=== PATIENT | male | born 1930 | race Caucasian/White ===

== ENCOUNTER 2017-08-11 17:24 | Inpatient (IN) | payer MEDICARE, BC ==
--- NOTE | 2017-08-11 18:17 | EDM.PDOC ---
ED HPI GENERAL MEDICAL PROBLEM - General Chief Complaint: General Stated Complaint: COUGH/WEAKNESS Time Seen by Provider: 08/11/17 17:58 Source of Information: Reports: Patient History Limitations: Reports: No Limitations - History of Present Illness INITIAL COMMENTS - FREE TEXT/NARRATIVE: Patient presents to ER complaining of not feeling well. Admits to cough and weakness. Cough has been nonproductive. Did not get out of bed today nor did he take any of his meds. Was seen in clinic by myself on Wednesday with complaints of upper respiratory symptoms, was started on Ceftin. Did not take any of those today. Unsure if has had fever. Not eating well. Has lost over 100# over the last few years due to swallowing difficulties, had a dilation and botox injections a few weeks ago. States is able to eat better now. Brother relates he has not been himself over the last week or so. Patient denies any burning with urination, states only goes a small amount at a time. Does not recall the last time he had a BM, no diarrhea as of late. Has had chills, possibly a fever at home. Onset: Gradual Duration: Day(s): Location: Reports: Generalized Severity: Moderate Worsens with: Reports: Movement Associated Symptoms: Reports: Cough, Fever/Chills, Loss of Appetite, Weakness. Denies: Nausea/Vomiting, Shortness of Breath Treatments [employer]: Reports: Other Medication(s) (Ceftin) - Related Data Allergies Allergy/AdvReac Type Severity Reaction Status Date / Time No Known Allergies Allergy Verified 08/11/17 17:35 Home Meds: Home Meds Cefuroxime Axetil [Cefuroxime] 250 mg PO Q12H 08/11/17 [History] Chlorthalidone 25 mg PO DAILY 08/11/17 [History] Doxazosin Mesylate [Cardura] 4 mg PO DAILY 08/11/17 [History] Levothyroxine Sodium [Synthroid] 100 mcg PO DAILY 08/11/17 [History] Omeprazole 20 mg PO DAILY 08/11/17 [History] Oxybutynin Chloride [Oxybutynin Chloride ER] 15 mg PO DAILY 08/11/17 [History] Potassium Chloride [Klor-Con 10] 10 mg PO DAILY 08/11/17 [History] amLODIPine Besylate [Amlodipine Besylate] 5 mg PO DAILY 08/11/17 [History] azaTHIOprine [Imuran] 50 mg PO DAILY 08/11/17 [History] Past Medical History HEENT History: Reports: Other (See Below) (dysphagia) Cardiovascular History: Reports: Hypertension Genitourinary History: Reports: Other (See Below) (prostate cancer) Oncologic (Cancer) History: Reports: Prostate - Past Surgical History HEENT Surgical History: Reports: Cataract Surgery Social & Family History - Tobacco Use Smoking Status *Q: Never Smoker - Caffeine Use Caffeine Use: Reports: Coffee - Recreational Drug Use Recreational Drug Use: No ED ROS GENERAL - Review of Systems Review Of Systems: See Below Constitutional: Reports: Fever, Chills, Malaise, Weakness, Fatigue, Decreased Appetite HEENT: Reports: Rhinitis. Denies: Ear Pain, Throat Swelling Respiratory: Reports: Cough, Sputum. Denies: Shortness of Breath Cardiovascular: Denies: Chest Pain, Edema, Lightheadedness Endocrine: Reports: Fatigue GI/Abdominal: Reports: Constipation. Denies: Abdominal Pain, Nausea, Vomiting : Reports: Incontinence Skin: Reports: No Symptoms Neurological: Reports: Weakness ED EXAM, GENERAL - Physical Exam Exam: See Below Exam Limited By: No Limitations General Appearance: Alert, WD/WN, No Apparent Distress Ears: Normal External Exam, Normal TMs Nose: Normal Inspection, Normal Mucosa, No Blood Throat/Mouth: Other (mucous membranes dry) Head: Normocephalic Neck: Normal Inspection, Supple, Non-Tender Respiratory/Chest: Decreased Breath Sounds Cardiovascular: Normal Peripheral Pulses, Regular Rate, Rhythm, No Edema GI/Abdominal: Normal Bowel Sounds, No Distention Extremities: Normal Inspection, No Pedal Edema Neurological: Alert, Oriented Psychiatric: Flat Affect Skin Exam: Warm, Dry Course - Vital Signs Last Recorded V/S: Last Vital Signs Temp 99.8 F 08/11/17 17:25 Pulse 70 08/11/17 17:25 Resp 18 08/11/17 17:25 BP 138/50 L 08/11/17 17:25 Pulse Ox 94 L 08/11/17 17:25 - Orders/Labs/Meds Orders: Active Orders 24 hr Category Date Time Status Patient Status [ADT] Routine ADT 08/11/17 18:58 Active Cardiac Monitoring [RC] CONTINUOUS Care 08/11/17 18:58 Active Oxygen Therapy [RC] PRN Care 08/11/17 18:58 Active Peripheral IV Care [RC] . DIRECTED Care 08/11/17 18:58 Active Up With Assistance [RC] ASDIRECTED Care 08/11/17 18:58 Active VTE/DVT Education [RC] PER UNIT ROUTINE Care 08/11/17 18:58 Active Vital Signs [RC] Q4H Care 08/11/17 18:58 Active Regular Diet [DIET] Diet 08/11/17 Breakfast Active Chest 2V [CR] Stat Exams 08/11/17 17:40 Taken BASIC METABOLIC PANEL,BMP [CHEM] AM Lab 08/12/17 05:11 Ordered C-REACTIVE PROTEIN [CHEM] AM Lab 08/12/17 05:11 Ordered CBC WITH AUTO DIFF [HEME] AM Lab 08/12/17 05:11 Ordered CULTURE SPUTUM + SMEAR [RM] Stat Lab 08/11/17 18:58 Ordered MAGNESIUM [CHEM] Stat Lab 08/12/17 05:11 Ordered Acetaminophen [Tylenol] Med 08/11/17 18:58 Ordered 650 mg PO Q4H PRN Azithromycin [Zithromax] 500 mg Med 08/11/17 18:58 Ordered Sodium Chloride 0.9% [Normal Saline] 250 ml IV Q24H Enoxaparin [Lovenox] Med 08/11/17 18:58 Ordered 30 mg SUBCUT Q24H Lactated Ringers [Ringers, Lactated] 1,000 ml Med 08/11/17 18:58 Ordered IV ASDIRECTED Ondansetron [Zofran ODT] Med 08/11/17 18:58 Ordered 4 mg PO Q4H PRN Sodium Chloride 0.9% [Saline Flush] Med 08/11/17 18:58 Ordered 10 ml FLUSH ASDIRECTED PRN cefTRIAXone [Rocephin] Med 08/11/17 18:58 Ordered 1 gm IVPUSH Q24H Peripheral IV Insertion Adult [OM.PC] Routine Oth 08/11/17 18:58 Ordered Resuscitation Status Routine Resus Stat 08/11/17 18:22 Ordered Medication Orders Acetaminophen (Tylenol) 650 mg PO Q4H PRN PRN Reason: Pain (Mild 1-3)/fever Ceftriaxone Sodium (Rocephin) 1 gm IVPUSH Q24H [facility] Enoxaparin Sodium (Lovenox) 30 mg SUBCUT Q24H [facility] Azithromycin 500 mg/ Sodium (Chloride) 250 mls @ 250 mls/hr IV Q24H [facility] Lactated Ringer's (Ringers, Lactated) 1,000 mls @ 125 mls/hr IV ASDIRECTED [facility] Ondansetron HCl (Zofran Odt) 4 mg PO Q4H PRN PRN Reason: nausea, able to take PO Sodium Chloride (Saline Flush) 10 ml FLUSH ASDIRECTED PRN PRN Reason: Keep Vein Open Labs: Laboratory Tests 08/11/17 08/11/17 08/11/17 Range/Units 17:40 17:45 17:45 WBC 10.0 (5.0-10.0) 10^3/uL RBC 3.92 L (4.50-6.00) 10^6/uL Hgb 12.2 L (14.0-18.0) g/dL Hct 36.7 L (40.0-54.0) % MCV 93.6 (82.0-94.0) fL MCH 31.1 (27.0-32.0) pg MCHC 33.2 (33.0-38.0) g/dL RDW Coeff of Lara 13.1 (11.0-15.0) % Plt Count 167 (150-400) 10^3/uL Add Manual Diff Yes Neutrophils % (Manual) 76 (35-85) % Band Neutrophils % 15 H (0-5) % Lymphocytes % (Manual) 4 L (21-55) % Monocytes % (Manual) 5 (2-12) % Absolute Neutrophils 9.10 H (1.80-7.00) 10^3/uL Lymphocytes # (Manual) 0.40 L (1.00-4.80) 10^3/uL Monocytes # (Manual) 0.50 (0.00-0.80) 10^3/uL Sodium 138 (136-145) mEq/L Potassium 3.7 (3.5-5.0) mEq/L Chloride 100 (98-106) mEq/L Carbon Dioxide 26 (21-32) mmol/L BUN 32 H (7-18) mg/dL Creatinine 1.4 H (0.7-1.3) mg/dL Est Cr Clr Drug Dosing 38.16 mL/min Estimated GFR (MDRD) 48 L (>=60) mL/min Glucose 144 H (75-99) mg/dL Calcium 8.9 (8.4-10.1) mg/dL Total Bilirubin 0.5 (0.0-1.0) mg/dL AST 22 (15-37) U/L ALT 16 (12-78) U/L Alkaline Phosphatase 48 (46-116) U/L C-Reactive Protein 3.1 H (0.2-0.8) mg/dL Total Protein 7.1 (6.4-8.2) g/dL Albumin 3.3 L (3.4-5.0) g/dL Urine Color Yellow (YELLOW) Urine Appearance Slightly cloudy (CLEAR) Urine pH 6.0 (4.5-8.0) Ur Specific [place] 1.020 (1.003-1.020) Urine Protein 30 H (NEGATIVE) mg/dL Urine Glucose (UA) Negative (NEGATIVE) mg/dL Urine Ketones 15 H (NEGATIVE) mg/dL Urine Occult Blood Small H (NEGATIVE) Urine Nitrite Negative (NEGATIVE) Urine Bilirubin Negative (NEGATIVE) Urine Urobilinogen 0.2 (0.2-1.0) EU/dL Ur Leukocyte Esterase Negative (NEGATIVE) Meds: Medications Generic Name Dose Route Start Last Admin Trade Name Freq PRN Reason Stop Dose Admin Acetaminophen 650 mg 08/11/17 18:58 Tylenol PO Q4H PRN Pain (Mild 1-3)/fever Ceftriaxone Sodium 1 gm 08/11/17 18:58 Rocephin IVPUSH Q24H [facility] Enoxaparin Sodium 30 mg 08/11/17 18:58 Lovenox SUBCUT Q24H [facility] Azithromycin 500 mg/ Sodium 250 mls @ 250 mls/hr 08/11/17 18:58 Chloride IV Q24H [facility] Lactated Ringer's 1,000 mls @ 125 mls/hr 08/11/17 18:58 Ringers, Lactated IV ASDIRECTED [facility] Ondansetron HCl 4 mg 08/11/17 18:58 Zofran Odt PO Q4H PRN nausea, able to take PO Sodium Chloride 10 ml 08/11/17 18:58 Saline Flush FLUSH ASDIRECTED PRN Keep Vein Open - Re-Assessments/Exams Free Text/Narrative Re-Assessment/Exam: 08/11/17 Labs reviewed. Noted to have elevated neutrophil and bands. Will admit and start IV fluids, antibiotics. Departure - Departure Time of Disposition: 18:19 Disposition: Refer to Observation Condition: Fair Clinical Impression: Weakness URI (upper respiratory infection) Qualifiers: URI type: unspecified URI Qualified Code(s): J06.9 - Acute upper respiratory infection, unspecified - Discharge Information - Problem List & Annotations (1) URI (upper respiratory infection) SNOMED Code(s): 38497662 Code(s): J06.9 - ACUTE UPPER RESPIRATORY INFECTION, UNSPECIFIED Status: Acute Priority: High Current Visit: Yes Qualifiers: URI type: unspecified URI Qualified Code(s): J06.9 - Acute upper respiratory infection, unspecified (2) Weakness SNOMED Code(s): 95905264 Code(s): R53.1 - WEAKNESS Status: Acute Priority: High Current Visit: Yes (3) Dehydration SNOMED Code(s): 24269088 Code(s): E86.0 - DEHYDRATION Status: Acute Priority: High Current Visit : Yes - Problem List Review Problem List Initiated/Reviewed/Updated: Yes - My Orders Last 24 Hours: My Active Orders 08/11/17 17:40 Chest 2V [CR] Stat 08/11/17 18:22 Resuscitation Status Routine 08/11/17 18:58 Patient Status [ADT] Routine Cardiac Monitoring [RC] CONTINUOUS Oxygen Therapy [RC] PRN Peripheral IV Care [RC] . DIRECTED Up With Assistance [RC] ASDIRECTED VTE/DVT Education [RC] PER UNIT ROUTINE Vital Signs [RC] Q4H CULTURE SPUTUM + SMEAR [RM] Stat Acetaminophen [Tylenol] 650 mg PO Q4H PRN Azithromycin [Zithromax] 500 mg Sodium Chloride 0.9% [Normal Saline] 250 ml IV Q24H Enoxaparin [Lovenox] 30 mg SUBCUT Q24H Lactated Ringers [Ringers, Lactated] 1,000 ml IV ASDIRECTED Ondansetron [Zofran ODT] 4 mg PO Q4H PRN Sodium Chloride 0.9% [Saline Flush] 10 ml FLUSH ASDIRECTED PRN cefTRIAXone [Rocephin] 1 gm IVPUSH Q24H Peripheral IV Insertion Adult [OM.PC] Routine 08/11/17 Breakfast Regular Diet [DIET] 08/12/17 05:11 BASIC METABOLIC PANEL,BMP [CHEM] AM C-REACTIVE PROTEIN [CHEM] AM CBC WITH AUTO DIFF [HEME] AM MAGNESIUM [CHEM] Stat - Assessment/Plan Admission H&P: Please use this note as an admission H&P Last 24 Hours: My Active Orders 08/11/17 17:40 Chest 2V [CR] Stat 08/11/17 18:22 Resuscitation Status Routine 08/11/17 18:58 Patient Status [ADT] Routine Cardiac Monitoring [RC] CONTINUOUS Oxygen Therapy [RC] PRN Peripheral IV Care [RC] . DIRECTED Up With Assistance [RC] ASDIRECTED VTE/DVT Education [RC] PER UNIT ROUTINE Vital Signs [RC] Q4H CULTURE SPUTUM + SMEAR [RM] Stat Acetaminophen [Tylenol] 650 mg PO Q4H PRN Azithromycin [Zithromax] 500 mg Sodium Chloride 0.9% [Normal Saline] 250 ml IV Q24H Enoxaparin [Lovenox] 30 mg SUBCUT Q24H Lactated Ringers [Ringers, Lactated] 1,000 ml IV ASDIRECTED Ondansetron [Zofran ODT] 4 mg PO Q4H PRN Sodium Chloride 0.9% [Saline Flush] 10 ml FLUSH ASDIRECTED PRN cefTRIAXone [Rocephin] 1 gm IVPUSH Q24H Peripheral IV Insertion Adult [OM.PC] Routine 08/11/17 Breakfast Regular Diet [DIET] 08/12/17 05:11 BASIC METABOLIC PANEL,BMP [CHEM] AM C-REACTIVE PROTEIN [CHEM] AM CBC WITH AUTO DIFF [HEME] AM MAGNESIUM [CHEM] Stat Assessment:: Weakness Dehydration URI Plan: Admit observation to Dr. Bauman. IV fluids, IV antibiotics. Repeat labs in am.
[2017-08-11] MEDS ORDERED: Ondansetron 4 MG Tab.DIS PO PRN (18:58)
[2017-08-11] MEDS ORDERED: Acetaminophen 325 MG Tab PO PRN (18:58)
[2017-08-11] MEDS ORDERED: Sodium Chloride 0.9% 10 ML Syringe FLUSH PRN (18:58)
[2017-08-11] MEDS ORDERED: Enoxaparin 40 MG/0.4 ML Syringe SUBCUT SCH (19:00)
[2017-08-11] MEDS: Enoxaparin 40 MG/0.4 ML Syringe SUBCUT SCH (19:45)
[2017-08-11] MEDS: cefTRIAXone 1 GM Vial IVPUSH SCH (19:46)
[2017-08-11] MEDS: Lactated Ringers 1,000 ML IV SCH (19:46)
[2017-08-11] MEDS: Azithromycin 500 MG in Sodium Chloride 0.9% 250 ML IV SCH (19:47)
[2017-08-12] MEDS: Lactated Ringers 1,000 ML IV SCH (05:44)
[2017-08-12 07:35] LABS: CHLORIDE,CL 103 mEq/L (98-106); SODIUM,NA 140 mEq/L (136-145)
[2017-08-12] MEDS ORDERED: AMLODIPINE BESYLATE 5 MG PO SCH (08:00)
[2017-08-12] MEDS ORDERED: DOXAZOSIN MESYLATE 4 MG PO SCH (08:00)
[2017-08-12] MEDS ORDERED: OMEPRAZOLE 20 MG PO SCH (08:00)
[2017-08-12] MEDS: Chlorthalidone 25 MG Tab PO SCH (08:21)
[2017-08-12] MEDS: AZATHIOPRINE 50 MG PO SCH (08:21)
[2017-08-12] MEDS: Potassium Chloride 10 MEQ Tab.ER PO SCH (08:22)
[2017-08-12] MEDS: methylPREDNISolone Sodium Succinate 125 MG/2 ML SDV IVPUSH SCH (08:22)
[2017-08-12] MEDS: D5 1/2 NS w/ 20 mEq/L KCl 1,000 ML IV SCH (08:23)
[2017-08-12] MEDS: Levothyroxine 100 MCG Tab PO SCH (08:23)
[2017-08-12] MEDS: Albuterol/Ipratropium 3.0-0.5 MG/3 ML Neb Soln NEB SCH ×3 (11:45→19:59)
--- NOTE | 2017-08-12 13:40 | PN ---
DATE: 08/12/2017 S: Mahamed Howard came in short of breath, coughing. O: NECK: Supple. CHEST: Wheezing, crepitus throughout. CARDIAC: Sounds are good. EXTREMITIES: No edema. ASSESSMENT: BRONCHIOLITIS. P: Add some steroids. Continue RT treatments and IV antibiotics. LISBETH/VANDANA /[id number]
[2017-08-12] MEDS: cefTRIAXone 1 GM Vial IVPUSH SCH (19:58)
[2017-08-12] MEDS: Enoxaparin 40 MG/0.4 ML Syringe SUBCUT SCH (19:59)
[2017-08-12] MEDS: Azithromycin 500 MG in Sodium Chloride 0.9% 250 ML IV SCH (20:00)
[2017-08-13] MEDS: D5 1/2 NS w/ 20 mEq/L KCl 1,000 ML IV SCH (00:15)
[2017-08-13] MEDS: Pantoprazole 40 MG Tab.CR PO SCH (06:55)
[2017-08-13 07:31] LABS: CHLORIDE,CL 103 mEq/L (98-106); SODIUM,NA 138 mEq/L (136-145)
[2017-08-13] MEDS: methylPREDNISolone Sodium Succinate 125 MG/2 ML SDV IVPUSH SCH (07:52)
[2017-08-13] MEDS: Albuterol/Ipratropium 3.0-0.5 MG/3 ML Neb Soln NEB SCH ×4 (07:55→19:45)
[2017-08-13] MEDS: Potassium Chloride 10 MEQ Tab.ER PO SCH (07:55)
[2017-08-13] MEDS: Chlorthalidone 25 MG Tab PO SCH (07:56)
[2017-08-13] MEDS: Levothyroxine 100 MCG Tab PO SCH (07:56)
[2017-08-13] MEDS: Doxazosin 2 MG Tab PO SCH (07:56)
[2017-08-13] MEDS: AZATHIOPRINE 50 MG PO SCH (07:58)
[2017-08-13] MEDS: amLODIPine 2.5 MG Tab PO SCH (08:15)
--- NOTE | 2017-08-13 12:59 | PN ---
DATE: 08/13/2017 S: Mahamed Howard is in with bronchiolitis, COPD. PHYSICAL EXAMINATION: NECK: Supple. CHEST: Wheezing, little basilar rales, right base, but he has improved from yesterday. ASSESSMENT: CHRONIC OBSTRUCTIVE PULMONARY DISEASE. P: Continue present therapy. His potassium is corrected. LISBETH/VANDANA /[id number]
[2017-08-13] MEDS: Magnesium Hydroxide 400 MG/5 ML Susp 30 ML Cup PO PRN (17:29)
[2017-08-13] MEDS: Enoxaparin 40 MG/0.4 ML Syringe SUBCUT SCH (19:42)
[2017-08-13] MEDS: Azithromycin 500 MG in Sodium Chloride 0.9% 250 ML IV SCH (19:43)
[2017-08-13] MEDS: Docusate Sodium 100 MG Cap PO SCH (19:43)
[2017-08-13] MEDS: cefTRIAXone 1 GM Vial IVPUSH SCH (19:43)
[2017-08-14] MEDS: Pantoprazole 40 MG Tab.CR PO SCH (06:24)
[2017-08-14] MEDS: Magnesium Hydroxide 400 MG/5 ML Susp 30 ML Cup PO PRN (06:24)
[2017-08-14] MEDS: Levothyroxine 100 MCG Tab PO SCH (07:58)
[2017-08-14] MEDS: Potassium Chloride 10 MEQ Tab.ER PO SCH (07:58)
[2017-08-14] MEDS: methylPREDNISolone Sodium Succinate 125 MG/2 ML SDV IVPUSH SCH (07:58)
[2017-08-14] MEDS: Albuterol/Ipratropium 3.0-0.5 MG/3 ML Neb Soln NEB SCH ×3 (07:58→16:07)
[2017-08-14] MEDS: Chlorthalidone 25 MG Tab PO SCH (07:58)
[2017-08-14] MEDS: Docusate Sodium 100 MG Cap PO SCH (07:59)
[2017-08-14] MEDS: AZATHIOPRINE 50 MG PO SCH (07:59)
[2017-08-14] MEDS: Doxazosin 2 MG Tab PO SCH (08:09)
[2017-08-14 08:10] LABS: CHLORIDE,CL 103 mEq/L (98-106); SODIUM,NA 140 mEq/L (136-145)
[2017-08-14] MEDS: amLODIPine 2.5 MG Tab PO SCH (08:10)
[2017-08-14] MEDS ORDERED: Polyethylene Glycol 3350 Powder 17 GM Packet PO ONE (13:23)
--- NOTE | 2017-08-14 14:39 | PCM.DCSUM1 ---
Discharge Summary - Hospital Course HPI Initial Comments: This patient is an 87 year old male that was admitted with bronchitis. The patient reports today that he feels great. He reports that he would like to go home now. Patient is out and ambulating in the hallway and his oxygen saturation is 98% RA. Patient reports that he does not feel short of breath. The patient labs show improvement. His WBC yesterday was 13.4, today it is 12.9. His CRP yesterday was 6.6, today it is 4.0. THe patient lung sounds are improved. Will discharge the patient home. - Discharge Data Discharge Date: 08/14/17 Discharge Disposition: Home, Self-Care 01 Condition: Good - Patient Instructions Diet: Usual Diet as Tolerated Activity: As Tolerated Showering/Bathing: May Shower Notify Provider of: Fever, Increased Pain, Nausea and/or Vomiting - Discharge Plan Prescriptions/Med Rec: Albuterol/Ipratropium [DuoNeb 3.0-0.5 MG/3 ML] 3 ml NEB QIDRT #60 neb Cefdinir [Omnicef] 300 mg PO BID 7 Days #14 cap Home Medications: Home Meds Cefuroxime Axetil [Cefuroxime] 250 mg PO Q12H 08/11/17 [History] Chlorthalidone 25 mg PO DAILY 08/11/17 [History] Doxazosin Mesylate [Cardura] 4 mg PO DAILY 08/11/17 [History] Levothyroxine Sodium [Synthroid] 100 mcg PO DAILY 08/11/17 [History] Omeprazole 20 mg PO DAILY 08/11/17 [History] Oxybutynin Chloride [Oxybutynin Chloride ER] 15 mg PO DAILY 08/11/17 [History] Potassium Chloride [Klor-Con 10] 10 mg PO DAILY 08/11/17 [History] amLODIPine Besylate [Amlodipine Besylate] 5 mg PO DAILY 08/11/17 [History] azaTHIOprine [Imuran] 50 mg PO DAILY 08/11/17 [History] Albuterol/Ipratropium [DuoNeb 3.0-0.5 MG/3 ML] 3 ml NEB QIDRT #60 neb 08/14/17 [ Rx] Cefdinir [Omnicef] 300 mg PO BID 7 Days #14 cap 08/14/17 [Rx] Patient Handouts: Upper Respiratory Infection, Adult, Dehydration, Adult Forms: ED Department Discharge Referrals: Henrry Velázquez MD [Primary Care Provider] - - Discharge Summary/Plan Comment DC Time >30 min.: No Discharge Summary/Plan Comment: Followup with your primary care provider within 3 days Return to the ER for worsening of condition or any emergent concerns such as shortness of breath, chest pain. Neb Machine #1 no refill Duoneb 1 neb every 6 hours as needed for shortness of breath #60 no refill Cefdinir 300mg 1 pill twice a day for 7 days #14 no refill - General Info Functional Status: Reports: Pain Controlled, Tolerating Diet, Ambulating - Review of Systems General: Reports: No Symptoms HEENT: Reports: No Symptoms Pulmonary: Reports: No Symptoms Cardiovascular: Reports: No Symptoms Gastrointestinal: Reports: Constipation, Flatus. Denies: Abdominal Pain, Decreased Appetite, Diarrhea, Nausea, Vomiting Genitourinary: Reports: No Symptoms Musculoskeletal: Reports: No Symptoms Skin: Reports: No Symptoms Neurological: Reports: No Symptoms Psychiatric: Reports: No Symptoms - Patient Data Vitals - Most Recent: Last Vital Signs Temp 97.4 F 08/14/17 12:00 Pulse 75 08/14/17 12:00 Resp 20 08/14/17 12:00 BP 102/55 L 08/14/17 12:00 Pulse Ox 94 L 08/14/17 12:00 Weight - Most Recent: 131 lb 8 oz Lab Results - Last 24 hrs: Laboratory Results - last 24 hr 08/14/17 08/14/17 Range/Units 07:32 07:32 WBC 12.9 H (5.0-10.0) 10^3/uL RBC 3.60 L (4.50-6.00) 10^6/uL Hgb 11.3 L (14.0-18.0) g/dL Hct 33.5 L (40.0-54.0) % MCV 93.1 (82.0-94.0) fL MCH 31.4 (27.0-32.0) pg MCHC 33.7 (33.0-38.0) g/dL RDW Coeff of Lara 13.2 (11.0-15.0) % Plt Count 171 (150-400) 10^3/uL Neut % (Auto) 86.7 H (35-85) % Lymph % (Auto) 5.1 L (10-55) % Scott % (Auto) 8.0 (0-16) % Eos % (Auto) 0 (0-5) % Baso % (Auto) 0.2 (0-3) % Neut # (Auto) 11.22 H (1.80-7.00) 10^3/uL Lymph # (Auto) 0.66 L (1.00-4.80) 10^3/uL Scott # (Auto) 1.03 H (0.00-0.80) 10^3/uL Eos # (Auto) 0.00 (0.00-0.45) 10^3/uL Baso # (Auto) 0.02 10^3/uL Sodium 140 (136-145) mEq/L Potassium 3.7 (3.5-5.0) mEq/L Chloride 103 (98-106) mEq/L Carbon Dioxide 28 (21-32) mmol/L BUN 28 H (7-18) mg/dL Creatinine 0.9 (0.7-1.3) mg/dL Est Cr Clr Drug Dosing 48.79 mL/min Estimated GFR (MDRD) > 60 (>=60) mL/min Glucose 101 H (75-99) mg/dL Calcium 8.9 (8.4-10.1) mg/dL Total Bilirubin 0.3 (0.0-1.0) mg/dL AST 44 H (15-37) U/L ALT 25 (12-78) U/L Alkaline Phosphatase 48 (46-116) U/L C-Reactive Protein 4.0 H (0.2-0.8) mg/dL Total Protein 6.3 L (6.4-8.2) g/dL Albumin 2.8 L (3.4-5.0) g/dL Amylase 37 (25-115) U/L ASH Results - Last 24 hrs: Microbiology 08/13/17 07:28 Gram Stain - Final Sputum - Expectorated Sputum Culture - Preliminary YEAST 08/11/17 19:10 Aerobic Blood Culture - Preliminary Blood - Venous - Lab Draw NO GROWTH AFTER 2 DAYS Anaerobic Blood Culture - Preliminary NO GROWTH AFTER 2 DAYS 08/11/17 19:05 Aerobic Blood Culture - Preliminary Blood - Venous NO GROWTH AFTER 2 DAYS Anaerobic Blood Culture - Preliminary NO GROWTH AFTER 2 DAYS Med Orders - Current: Current Medications Acetaminophen (Tylenol) 650 mg PO Q4H PRN PRN Reason: Pain (Mild 1-3)/fever Last Admin: 08/11/17 19:44 Dose: 650 mg Albuterol/Ipratropium (Duoneb 3.0-0.5 Mg/3 Ml) 3 ml NEB QIDRT [facility] Last Admin: 08/14/17 11:47 Dose: 3 ml Amlodipine Besylate (Norvasc) 5 mg PO DAILY [facility] Last Admin: 08/14/17 08:10 Dose: Not Given Ceftriaxone Sodium (Rocephin) 1 gm IVPUSH Q24H [facility] Last Admin: 08/13/17 19:43 Dose: 1 gm Chlorthalidone (Chlorthalidone) 25 mg PO DAILY [facility] Last Admin: 08/14/17 07:58 Dose: 25 mg Docusate Sodium (Colace) 100 mg PO BID [facility] Last Admin: 08/14/17 07:59 Dose: 100 mg Doxazosin Mesylate (Cardura) 4 mg PO DAILY [facility] Last Admin: 08/14/17 08:09 Dose: Not Given Enoxaparin Sodium (Lovenox) 40 mg SUBCUT Q24H [facility] Last Admin: 08/13/17 19:42 Dose: 40 mg Azithromycin 500 mg/ Sodium (Chloride) 250 mls @ 250 mls/hr IV Q24H [facility] Last Admin: 08/13/17 19:43 Dose: 250 mls/hr Levothyroxine Sodium (Synthroid) 100 mcg PO DAILY [facility] Last Admin: 08/14/17 07:58 Dose: 100 mcg Magnesium Hydroxide (Milk Of Magnesia) 30 ml PO DAILY PRN PRN Reason: Constipation Last Admin: 08/14/17 06:24 Dose: 30 ml Methylprednisolone Sodium Succinate (Solu-Medrol) 62.5 mg IVPUSH Q24H [facility] Last Admin: 08/14/17 07:58 Dose: 62.5 mg Ptom Azathioprine [Imuran ] 50 Mg Tab 50 mg PO DAILY [facility] Last Admin: 08/14/17 07:59 Dose: 50 mg Ondansetron HCl (Zofran Odt) 4 mg PO Q4H PRN PRN Reason: nausea, able to take PO Pantoprazole Sodium (Protonix) 40 mg PO ACBREAKFAST [facility] Last Admin: 08/14/17 06:24 Dose: 40 mg Potassium Chloride (Klor-Con 10) 10 meq PO DAILY [facility] Last Admin: 08/14/17 07:58 Dose: 10 meq Sodium Chloride (Saline Flush) 10 ml FLUSH ASDIRECTED PRN PRN Reason: Keep Vein Open Discontinued Medications Enoxaparin Sodium (Lovenox) 40 mg SUBCUT Q24H [facility] Last Admin: 08/11/17 19:25 Dose: Not Given Lactated Ringer's (Ringers, Lactated) 1,000 mls @ 125 mls/hr IV ASDIRECTED [facility] Last Admin: 08/12/17 05:44 Dose: 125 mls/hr Potassium Chloride/Dextrose/Sod Cl (D5 1/2 Ns W/ 20 Meq/L Kcl) 1,000 mls @ 125 mls/hr IV ASDIRECTED [facility] Last Admin: 08/13/17 00:15 Dose: 125 mls/hr Ptom Amlodipine Besylate [Amlodipine Besylate] 5 Mg 5 mg PO DAILY [facility] Last Admin: 08/12/17 08:20 Dose: 5 mg Ptom Doxazosin Mesylate [Cardura] 4 Mg 4 mg PO DAILY [facility] Last Admin: 08/12/17 08:21 Dose: 4 mg Ptom Omeprazole ([Omeprazole] 20 Mg) 20 mg PO DAILY [facility] Last Admin: 08/12/17 08:22 Dose: 20 mg Polyethylene Glycol (Miralax) 17 gm PO ONETIME ONE Stop: 08/14/17 13:24 Last Admin: 08/14/17 13:45 Dose: 17 gm - Exam General: Reports: Alert, Oriented, Cooperative, No Acute Distress HEENT: Reports: Pupils Equal, Pupils Reactive, Mucous Membr. Moist/[place] Neck: Reports: Supple, Trachea Midline, No JVD, No Thyromegaly Lungs: Reports: Clear to Auscultation, Normal Respiratory Effort Cardiovascular: Reports: Regular Rate, Regular Rhythm GI/Abdominal Exam: Normal Bowel Sounds, Soft, Non-Tender, No Organomegaly, No Distention Back Exam: Reports: Normal Inspection, Full Range of Motion Extremities: Normal Inspection, Normal Range of Motion, Non-Tender, No Pedal Edema, Normal Capillary Refill Skin: Reports: Warm, Dry, Intact Neurological: Reports: No New Focal Deficit Psy/Mental Status: Reports: Alert, Normal Affect, Normal Mood
[2017-08-14] MEDS ORDERED: Take Home: Albuterol 0.083% 2.5 MG/3 ML Neb Soln, 4 Neb Pack NEB ONE (14:57)
[2017-08-14] MEDS: cefTRIAXone 1 GM Vial IVPUSH SCH (14:57)
[2017-08-14] MEDS: Azithromycin 500 MG in Sodium Chloride 0.9% 250 ML IV SCH (14:57)
[2017-08-14] MEDS ORDERED: Albuterol 0.083% 2.5 MG/3 ML Neb Soln INH ONE (16:19)
== END 2017-08-14 16:20 | disposition home or self-care (01) | DRG 192 ==
LOC: CC.ED 17:24 → OBSVTOIN 18:22 → UNDOADMOB 18:22 → CC.MS 18:22 → INTOOBSV 18:22 → UNDOADMOB 18:51 → CC.MS 18:51 → OBSVTOIN 08-12 08:04
PROVIDERS: ADMIT Physician Assistant Medical; ATTEND General Practice
DX: J06.9 Acute upper respiratory infection, unspecified (principal); R53.1 Weakness; J44.9 Chronic obstructive pulmonary disease, unspecified; R50.9 Fever, unspecified; E86.0 Dehydration; Z79.899 Other long term (current) drug therapy; I10 Essential (primary) hypertension; R13.10 Dysphagia, unspecified; R53.81 Other malaise; J31.0 Chronic rhinitis; R53.83 Other fatigue; R32 Unspecified urinary incontinence; Z85.46 Personal history of malignant neoplasm of prostate
CPT/HCPCS: 36415; 71046; 80048; 80053; 81003; 82150; 83735; 85025; 86140; 87040; 87070; 87205; 94640; 96365; 96372; 96375; 99284; A9270-GY; G0378; J0456; J0696; J1650; J2930; J3480; J7050; J7120; J7620-GY

== ENCOUNTER 2017-09-01 14:26 | Inpatient (IN) | payer MEDICARE, BC ==
[2017-09-01 16:05] LABS: CHLORIDE,CL 101 mEq/L (98-106); SODIUM,NA 141 mEq/L (136-145)
[2017-09-01] MEDS ORDERED: Magnesium Hydroxide 400 MG/5 ML Susp 30 ML Cup PO PRN (16:30)
[2017-09-01] MEDS ORDERED: Sodium Chloride 0.9% 10 ML Syringe FLUSH PRN (16:34)
[2017-09-01] MEDS: Enoxaparin 40 MG/0.4 ML Syringe SUBCUT SCH (17:38)
[2017-09-01] MEDS: Potassium Chloride 10 MEQ Tab.ER PO SCH (17:38)
[2017-09-01] MEDS: Lactated Ringers 1,000 ML IV SCH (17:59)
[2017-09-02] MEDS ORDERED: Pantoprazole 40 MG Tab.CR PO SCH (07:00)
[2017-09-02 07:21] LABS: CHLORIDE,CL 103 mEq/L (98-106); SODIUM,NA 141 mEq/L (136-145)
[2017-09-02] MEDS ORDERED: Doxazosin 2 MG Tab PO SCH (08:00)
[2017-09-02] MEDS: DOXAZOSIN 4 MG PO SCH ×2 (08:00→20:14)
[2017-09-02] MEDS ORDERED: Levothyroxine 100 MCG Tab PO SCH (08:00)
[2017-09-02] MEDS: Potassium Chloride 10 MEQ Tab.ER PO SCH ×2 (08:00→17:11)
[2017-09-02] MEDS: Levothyroxine 100 MCG Tab PO SCH (08:00)
--- NOTE | 2017-09-02 08:39 | PCM.PN ---
- General Info Date of Service: 09/02/17 Admission Dx/Problem (Free Text): Dehydration Generalized Weakness Subjective Update: Patient reports he is feeling fine this morning. He is resting comfortaly in bed at time of rounds. He has eaten about 75% of his breakfast tray. He reports he has been up walking to the bathroom, but still feels weak. He denies any pain or discomforts. BP remains low. Functional Status: Reports: Pain Controlled, Tolerating Diet, Ambulating, Urinating. Denies: New Symptoms - Review of Systems General: Reports: Weakness, Fatigue. Denies: Fever, Chills Pulmonary: Denies: Shortness of Breath, Cough, Sputum, Wheezing Cardiovascular: Reports: Dyspnea on Exertion. Denies: Chest Pain, Orthopnea, Edema, Lightheadedness Gastrointestinal: Denies: Abdominal Pain, Decreased Appetite, Diarrhea, Nausea, Vomiting Genitourinary: Reports: Frequency, Incontinence. Denies: Dysuria, Urgency Musculoskeletal: Reports: No Symptoms Skin: Reports: No Symptoms Neurological: Reports: Dizziness, Difficulty Walking (due to weakness), Weakness. Denies: Confusion, Numbness, Syncope, Tingling Psychiatric: Reports: No Symptoms - Patient Data Vitals - Most Recent: Last Vital Signs Temp 97.5 F 09/02/17 07:22 Pulse 52 L 09/02/17 07:22 Resp 20 09/02/17 07:22 BP 98/58 L 09/02/17 07:22 Pulse Ox 99 09/02/17 07:22 Weight - Most Recent: 123 lb 8 oz Lab Results Last 24 Hours: Laboratory Results - last 24 hr 09/01/17 09/01/17 09/01/17 Range/Units 14:37 14:37 14:37 WBC 5.9 (5.0-10.0) 10^3/uL RBC 4.11 L (4.50-6.00) 10^6/uL Hgb 12.7 L (14.0-18.0) g/dL Hct 38.6 L (40.0-54.0) % MCV 93.9 (82.0-94.0) fL MCH 30.9 (27.0-32.0) pg MCHC 32.9 L (33.0-38.0) g/dL RDW Coeff of Lara 14.2 (11.0-15.0) % Plt Count 164 (150-400) 10^3/uL Neut % (Auto) 80.9 (35-85) % Lymph % (Auto) 9.6 L (10-55) % Mchenry % (Auto) 8.5 (0-16) % Eos % (Auto) 0.7 (0-5) % Baso % (Auto) 0.3 (0-3) % Neut # (Auto) 4.74 (1.80-7.00) 10^3/uL Lymph # (Auto) 0.56 L (1.00-4.80) 10^3/uL Mchenry # (Auto) 0.50 (0.00-0.80) 10^3/uL Eos # (Auto) 0.04 (0.00-0.45) 10^3/uL Baso # (Auto) 0.02 10^3/uL ESR 18 H (0-15) mm/hr Sodium 141 (136-145) mEq/L Potassium 3.3 L (3.5-5.0) mEq/L Chloride 101 (98-106) mEq/L Carbon Dioxide 30 (21-32) mmol/L BUN 44 H D (7-18) mg/dL Creatinine 1.0 (0.7-1.3) mg/dL Est Cr Clr Drug Dosing TNP Estimated GFR (MDRD) > 60 (>=60) mL/min Glucose 131 H D (75-99) mg/dL Calcium 9.5 (8.4-10.1) mg/dL Magnesium 2.0 (1.8-2.4) mg/dL Total Bilirubin 0.5 (0.0-1.0) mg/dL AST 18 (15-37) U/L ALT 17 (12-78) U/L Alkaline Phosphatase 58 (46-116) U/L Troponin I < 0.017 (0.00-0.06) ng/mL Total Protein 7.1 (6.4-8.2) g/dL Albumin 3.5 (3.4-5.0) g/dL Free T4 1.3 (0.8-1.6) ng/dL TSH, Ultra Sensitive 8.66 H (0.36-5.60) uIU/mL 09/02/17 Range/Units 06:56 WBC (5.0-10.0) 10^3/uL RBC (4.50-6.00) 10^6/uL Hgb (14.0-18.0) g/dL Hct (40.0-54.0) % MCV (82.0-94.0) fL MCH (27.0-32.0) pg MCHC (33.0-38.0) g/dL RDW Coeff of Lara (11.0-15.0) % Plt Count (150-400) 10^3/uL Neut % (Auto) (35-85) % Lymph % (Auto) (10-55) % Mchenry % (Auto) (0-16) % Eos % (Auto) (0-5) % Baso % (Auto) (0-3) % Neut # (Auto) (1.80-7.00) 10^3/uL Lymph # (Auto) (1.00-4.80) 10^3/uL Mchenry # (Auto) (0.00-0.80) 10^3/uL Eos # (Auto) (0.00-0.45) 10^3/uL Baso # (Auto) 10^3/uL ESR (0-15) mm/hr Sodium 141 (136-145) mEq/L Potassium 3.4 L (3.5-5.0) mEq/L Chloride 103 (98-106) mEq/L Carbon Dioxide 34 H (21-32) mmol/L BUN 38 H (7-18) mg/dL Creatinine 0.9 (0.7-1.3) mg/dL Est Cr Clr Drug Dosing 45.82 Estimated GFR (MDRD) > 60 (>=60) mL/min Glucose 105 H (75-99) mg/dL Calcium 8.8 (8.4-10.1) mg/dL Magnesium (1.8-2.4) mg/dL Total Bilirubin (0.0-1.0) mg/dL AST (15-37) U/L ALT (12-78) U/L Alkaline Phosphatase (46-116) U/L Troponin I (0.00-0.06) ng/mL Total Protein (6.4-8.2) g/dL Albumin (3.4-5.0) g/dL Free T4 (0.8-1.6) ng/dL TSH, Ultra Sensitive (0.36-5.60) uIU/mL Med Orders - Current: Current Medications Doxazosin Mesylate (Cardura) 4 mg PO DAILY [facility] Enoxaparin Sodium (Lovenox) 40 mg SUBCUT Q24H [facility] Last Admin: 09/01/17 17:38 Dose: 40 mg Lactated Ringer's (Ringers, Lactated) 1,000 mls @ 50 mls/hr IV ASDIRECTED [facility] Last Admin: 09/01/17 17:59 Dose: 50 mls/hr Levothyroxine Sodium (Synthroid) 100 mcg PO DAILY [facility] Magnesium Hydroxide (Milk Of Magnesia) 30 ml PO Q12H PRN PRN Reason: Constipation Last Admin: 09/01/17 17:59 Dose: 30 ml Pantoprazole Sodium (Protonix) 40 mg PO ACBRK [facility] Last Admin: 09/02/17 06:17 Dose: Not Given Potassium Chloride (Klor-Con 10) 20 meq PO BIDMEALS [facility] Last Admin: 09/01/17 17:38 Dose: 20 meq Sodium Chloride (Saline Flush) 10 ml FLUSH ASDIRECTED PRN PRN Reason: Keep Vein Open - Exam Quality Assessment: DVT Prophylaxis General: Alert, Oriented, No Acute Distress Neck: Supple Lungs: Clear to Auscultation, Normal Respiratory Effort Cardiovascular: Regular Rate, Regular Rhythm GI/Abdominal Exam: Normal Bowel Sounds, Soft, Non-Tender, No Organomegaly, No Distention, No Abnormal Bruit, No Mass, Pelvis Stable Back Exam: Normal Inspection, Full Range of Motion Extremities: Normal Inspection, Normal Range of Motion, Non-Tender, No Pedal Edema, Normal Capillary Refill Skin: Warm, Dry, Intact Neurological: No New Focal Deficit Psy/Mental Status: Alert, Normal Affect, Normal Mood - Problem List & Annotations (1) Dehydration SNOMED Code(s): 28590211 Code(s): E86.0 - DEHYDRATION Status: Acute Priority: High Current Visit : No (2) Weakness SNOMED Code(s): 00630070 Code(s): R53.1 - WEAKNESS Status: Acute Priority: High Current Visit: No - Problem List Review Problem List Initiated/Reviewed/Updated: Yes - Assessment Assessment:: Dehydration Weakness - Plan Plan:: Patient remains hypotensive and weak. He has been ambulating to the bathroom with assistance from nursing. Continue IVF. BUN improved from 44 to 38. Continue working with PT for strengthening. Encourage ambulation. Continue monitoring BP. Probable discharge tomorrow if blood pressure improves.
[2017-09-02] MEDS ORDERED: Doxazosin 4 MG Tab**OWN MED PO SCH (14:00)
[2017-09-02] MEDS ORDERED: OMEPRAZOLE 20 MG PO SCH (14:03)
[2017-09-02] MEDS: Lactated Ringers 1,000 ML IV SCH (14:05)
[2017-09-02] MEDS ORDERED: Ondansetron 4 MG/2 ML SDV IVPUSH PRN (16:54)
[2017-09-02] MEDS: Enoxaparin 40 MG/0.4 ML Syringe SUBCUT SCH (17:11)
[2017-09-03] MEDS: Levothyroxine 100 MCG Tab PO SCH (06:33)
[2017-09-03] MEDS: DOXAZOSIN 4 MG PO SCH (08:15)
[2017-09-03] MEDS: Potassium Chloride 10 MEQ Tab.ER PO SCH ×2 (08:15→17:09)
[2017-09-03] MEDS: Lactated Ringers 1,000 ML IV SCH (09:59)
--- NOTE | 2017-09-03 12:35 | PCM.PN ---
- General Info Date of Service: 09/03/17 Admission Dx/Problem (Free Text): Dehydration Generalized Weakness Subjective Update: Patient reports he is feeling fine this morning. He is resting comfortably in bed at time of rounds. He reports he has been up walking to the bathroom, but still feels weak and unsteady. He denies any pain or discomforts. BP remains on the low side. He reports for a number of years he has had difficulty swallowing. He reports he has lost approximately 100 lbs in the last year due to this. He reports he has had a number of scope, where they have dilated his esophagus. He has also had b[facility] his esophagus[facility]. He would like to discuss the option of tube feedings. Functional Status: Reports: Pain Controlled, Tolerating Diet, Ambulating, Urinating. Denies: New Symptoms - Review of Systems General: Reports: Weakness, Fatigue. Denies: Fever, Chills Pulmonary: Reports: No Symptoms Cardiovascular: Reports: No Symptoms Gastrointestinal: Reports: Difficulty Swallowing. Denies: Abdominal Pain, Constipation, Decreased Appetite, Diarrhea, Nausea, Vomiting Genitourinary: Reports: No Symptoms Musculoskeletal: Reports: No Symptoms Skin: Reports: No Symptoms Neurological: Reports: Weakness. Denies: Confusion, Dizziness, Headache, Numbness, Tingling Psychiatric: Reports: No Symptoms - Patient Data Vitals - Most Recent: Last Vital Signs Temp 97.8 F 09/03/17 07:11 Pulse 49 L 09/03/17 07:11 Resp 20 09/03/17 07:11 BP 109/58 L 09/03/17 07:11 Pulse Ox 99 09/03/17 07:11 Weight - Most Recent: 123 lb 8 oz I&O - Last 24 Hours: Intake & Output 09/02/17 09/03/17 09/03/17 22:59 06:59 14:59 Intake Total 995 Balance 995 Med Orders - Current: Current Medications Enoxaparin Sodium (Lovenox) 40 mg SUBCUT Q24H [facility] Last Admin: 09/02/17 17:11 Dose: 40 mg Lactated Ringer's (Ringers, Lactated) 1,000 mls @ 50 mls/hr IV ASDIRECTED [facility] Last Admin: 09/03/17 09:59 Dose: 50 mls/hr Levothyroxine Sodium (Synthroid) 100 mcg PO ACBREAKFAST [facility] Last Admin: 09/03/17 06:33 Dose: 100 mcg Magnesium Hydroxide (Milk Of Magnesia) 30 ml PO Q12H PRN PRN Reason: Constipation Last Admin: 09/01/17 17:59 Dose: 30 ml Ptom Omeprazole (20mg) 1 each PO ACBRK [facility] Last Admin: 09/03/17 06:33 Dose: 1 each Ptom Doxazosin 4 (Mg Tab) 1 each PO DAILY [facility] Last Admin: 09/03/17 08:15 Dose: 1 each Ondansetron HCl (Zofran) 4 mg IVPUSH Q6H PRN PRN Reason: Nausea Last Admin: 09/02/17 17:11 Dose: 4 mg Potassium Chloride (Klor-Con 10) 20 meq PO BIDMEALS [facility] Last Admin: 09/03/17 08:15 Dose: 20 meq Sodium Chloride (Saline Flush) 10 ml FLUSH ASDIRECTED PRN PRN Reason: Keep Vein Open Discontinued Medications Doxazosin Mesylate (Cardura) 4 mg PO DAILY [facility] Last Admin: 09/02/17 14:04 Dose: Not Given Levothyroxine Sodium (Synthroid) 100 mcg PO DAILY [facility] Last Admin: 09/02/17 14:04 Dose: Not Given Doxazosin 4 Mg Tab (Own Med) 4 each PO DAILY [facility] Pantoprazole Sodium (Protonix) 40 mg PO ACBRK [facility] Last Admin: 09/02/17 06:17 Dose: Not Given - Exam General: Alert, Oriented Neck: Supple Lungs: Clear to Auscultation, Normal Respiratory Effort Cardiovascular: Regular Rate, Regular Rhythm GI/Abdominal Exam: Normal Bowel Sounds, Soft, Non-Tender, No Organomegaly, No Distention, No Abnormal Bruit, No Mass, Pelvis Stable Back Exam: Normal Inspection, Full Range of Motion Extremities: Normal Inspection, Normal Range of Motion, Non-Tender, No Pedal Edema, Normal Capillary Refill Skin: Warm, Dry, Intact Neurological: No New Focal Deficit Psy/Mental Status: Alert, Normal Affect, Normal Mood - Problem List & Annotations (1) Dehydration SNOMED Code(s): 83977036 Code(s): E86.0 - DEHYDRATION Status: Acute Priority: High Current Visit : No (2) Weakness SNOMED Code(s): 92287012 Code(s): R53.1 - WEAKNESS Status: Acute Priority: High Current Visit: No (3) Esophageal dysphagia SNOMED Code(s): 55034414 Code(s): R13.10 - DYSPHAGIA, UNSPECIFIED Status: Acute Current Visit: Yes (4) Weight loss, unintentional SNOMED Code(s): 210063101 Code(s): R63.4 - ABNORMAL WEIGHT LOSS Status: Acute Current Visit: Yes - Problem List Review Problem List Initiated/Reviewed/Updated: Yes - My Orders Last 24 Hours: My Active Orders 09/02/17 16:54 Ondansetron [Zofran] 4 mg IVPUSH Q6H PRN - Assessment Assessment:: Dehydration Weakness Dysphagia - Plan Plan:: Patient remains hypotensive and weak. He has been ambulating to the bathroom with assistance from nursing. Is unsteady on his feet. Continue IVF. Continue working with PT for strengthening. Encourage ambulation. Continue monitoring BP. Patient has difficulty swallowing and would like to discuss feeding tube. Dr. Bauman will see as outpatient for physical upon discharge and discuss this with patient's surgeon. Will admit to acute for continued IVF, close monitoring of blood pressure, and physical therapy.
[2017-09-03] MEDS: Enoxaparin 40 MG/0.4 ML Syringe SUBCUT SCH (17:08)
[2017-09-04] MEDS: Pantoprazole 40 MG Tab.CR PO SCH (06:12)
[2017-09-04] MEDS: Levothyroxine 100 MCG Tab PO SCH (06:12)
[2017-09-04] MEDS: Lactated Ringers 1,000 ML IV SCH (06:13)
--- NOTE | 2017-09-04 06:17 | PCM.PN ---
- General Info Functional Status: Reports: Pain Controlled, Tolerating Diet, Ambulating (with 1 -2 person assist depending on the distance. ), Urinating - Review of Systems General: Reports: Weakness (generalized. ) HEENT: Reports: No Symptoms Pulmonary: Reports: No Symptoms Cardiovascular: Reports: Lightheadedness (rarely per patient. ) Gastrointestinal: Reports: No Symptoms Genitourinary: Reports: No Symptoms Musculoskeletal: Reports: No Symptoms Skin: Reports: No Symptoms Neurological: Reports: No Symptoms Psychiatric: Reports: No Symptoms - Patient Data Vitals - Most Recent: Last Vital Signs Temp 97.4 F 09/04/17 04:00 Pulse 45 L 09/04/17 04:00 Resp 18 09/04/17 04:00 BP 118/65 09/04/17 04:00 Pulse Ox 100 09/04/17 04:00 Weight - Most Recent: 123 lb 8 oz I&O - Last 24 Hours: Intake & Output 09/03/17 09/03/17 09/04/17 14:59 22:59 06:59 Intake Total 995 Balance 995 Med Orders - Current: Current Medications Doxazosin Mesylate (Cardura) 4 mg PO DAILY [facility] Enoxaparin Sodium (Lovenox) 40 mg SUBCUT Q24H [facility] Last Admin: 09/03/17 17:08 Dose: 40 mg Lactated Ringer's (Ringers, Lactated) 1,000 mls @ 50 mls/hr IV ASDIRECTED [facility] Last Admin: 09/03/17 09:59 Dose: 50 mls/hr Levothyroxine Sodium (Synthroid) 100 mcg PO ACBREAKFAST [facility] Last Admin: 09/03/17 06:33 Dose: 100 mcg Magnesium Hydroxide (Milk Of Magnesia) 30 ml PO Q12H PRN PRN Reason: Constipation Last Admin: 09/01/17 17:59 Dose: 30 ml Ondansetron HCl (Zofran) 4 mg IVPUSH Q6H PRN PRN Reason: Nausea Last Admin: 09/02/17 17:11 Dose: 4 mg Pantoprazole Sodium (Protonix) 40 mg PO ACBRK [facility] Potassium Chloride (Klor-Con 10) 20 meq PO BIDMEALS [facility] Last Admin: 09/03/17 17:09 Dose: 20 meq Sodium Chloride (Saline Flush) 10 ml FLUSH ASDIRECTED PRN PRN Reason: Keep Vein Open Discontinued Medications Doxazosin Mesylate (Cardura) 4 mg PO DAILY [facility] Last Admin: 09/02/17 14:04 Dose: Not Given Levothyroxine Sodium (Synthroid) 100 mcg PO DAILY [facility] Last Admin: 09/02/17 14:04 Dose: Not Given Doxazosin 4 Mg Tab (Own Med) 4 each PO DAILY [facility] Ptom Omeprazole (20mg) 1 each PO ACBRK [facility] Last Admin: 09/03/17 06:33 Dose: 1 each Ptom Doxazosin 4 (Mg Tab) 1 each PO DAILY [facility] Last Admin: 09/03/17 08:15 Dose: 1 each Pantoprazole Sodium (Protonix) 40 mg PO ACBRK [facility] Last Admin: 09/02/17 06:17 Dose: Not Given - Exam General: Alert, Oriented, Cooperative, No Acute Distress HEENT: Pupils Equal, Pupils Reactive, Mucous Membr. Moist/Mcintyre Neck: Supple Lungs: Clear to Auscultation, Normal Respiratory Effort Cardiovascular: Regular Rate, Regular Rhythm GI/Abdominal Exam: Normal Bowel Sounds, Soft, Non-Tender, No Organomegaly, No Distention, No Abnormal Bruit, No Mass, Pelvis Stable, Other (thin) (Male) Exam: Deferred Back Exam: Normal Inspection, Full Range of Motion. No: CVA Tenderness (L), CVA Tenderness (R) Extremities: Normal Inspection, Normal Range of Motion, Non-Tender, No Pedal Edema, Normal Capillary Refill Peripheral Pulses: 2+: Radial (L), Radial (R), Posterior Tibial (L), Posterior Tibial (R), Dorsalis Pedis (L), Dorsalis Pedis (R) Skin: Warm, Dry, Intact Neurological: No New Focal Deficit Psy/Mental Status: Alert, Normal Affect, Normal Mood - Problem List Review Problem List Initiated/Reviewed/Updated: Yes - My Orders Last 24 Hours: My Active Orders 09/04/17 05:00 BMP [BASIC METABOLIC PANEL,BMP] [CHEM] DAILY CBC WITH AUTO DIFF [HEME] DAILY URINALYSIS W/MICROSCOPIC [UA W/MICROSCOPIC] [URIN] Routine 09/05/17 05:00 BMP [BASIC METABOLIC PANEL,BMP] [CHEM] DAILY CBC WITH AUTO DIFF [HEME] DAILY - Assessment Assessment:: Dehydration Weakness 09/04/17 This patient was a rebound admit for generalized weakness and hypotension with bradycardia. The patient reports this morning that he is overall feeling well, but remains generally weak. He reports rarely, at times he will have lightheadedness even with just laying in bed. He reports that does not have lightheadedness now. Patient reports he has chronic feeding difficulties and has discussed a possible feeding tube with PCP. He has had large amounts of weight loss due to this chronic issue. Today, I have ordered labs on the patient. I will review once they come back. I have reviewed previous EKG. Patient HR now is 49 Sinus. I will have the patient eat his breakfast this morning then have the nurse walk the patient. Will have nurse obtain HR to ensure increases with activity and assess patient symptoms to check for pacemaker need. If everything is normal, will keep patient until Wednesday. As, the patient lives at home alone without anyone. He has been generally weak and has struggled at home with ADLs. This patient may require chcf placement with extended PT/OT. Stable now. - Plan Plan:: Patient remains hypotensive and weak. He has been ambulating to the bathroom with assistance from nursing. Is unsteady on his feet. Continue IVF. Continue working with PT for strengthening. Encourage ambulation. Continue monitoring BP. Patient has difficulty swallowing and would like to discuss feeding tube. Will admit to acute for continued IVF.
[2017-09-04] MEDS: Doxazosin 2 MG Tab PO SCH (07:26)
[2017-09-04] MEDS: Potassium Chloride 10 MEQ Tab.ER PO SCH ×2 (07:27→18:20)
[2017-09-04 07:44] LABS: CHLORIDE,CL 105 mEq/L (98-106); SODIUM,NA 140 mEq/L (136-145)
[2017-09-04] MEDS: Enoxaparin 40 MG/0.4 ML Syringe SUBCUT SCH (18:20)
[2017-09-05] MEDS: Lactated Ringers 1,000 ML IV SCH ×2 (02:26→19:30)
[2017-09-05] MEDS: Levothyroxine 100 MCG Tab PO SCH (06:12)
[2017-09-05] MEDS: Pantoprazole 40 MG Tab.CR PO SCH (06:12)
[2017-09-05] MEDS: Doxazosin 2 MG Tab PO SCH (07:31)
[2017-09-05] MEDS: Potassium Chloride 10 MEQ Tab.ER PO SCH ×2 (07:32→17:33)
[2017-09-05 08:24] LABS: CHLORIDE,CL 105 mEq/L (98-106); SODIUM,NA 141 mEq/L (136-145)
--- NOTE | 2017-09-05 09:52 | PCM.PN ---
- General Info Date of Service: 09/05/17 Functional Status: Reports: Pain Controlled, Tolerating Diet, Ambulating (with ambulation and unsteady gait due to weakness. ) - Review of Systems General: Reports: Weakness (generalized) HEENT: Reports: No Symptoms Pulmonary: Reports: No Symptoms Cardiovascular: Reports: No Symptoms Gastrointestinal: Reports: No Symptoms Genitourinary: Reports: No Symptoms Musculoskeletal: Reports: No Symptoms Skin: Reports: No Symptoms Neurological: Reports: No Symptoms Psychiatric: Reports: No Symptoms - Patient Data Vitals - Most Recent: Last Vital Signs Temp 96.3 F 09/05/17 08:00 Pulse 50 L 09/05/17 08:00 Resp 18 09/05/17 08:00 BP 118/56 L 09/05/17 08:00 Pulse Ox 100 09/05/17 08:00 Weight - Most Recent: 123 lb 8 oz I&O - Last 24 Hours: Intake & Output 09/04/17 09/05/17 09/05/17 22:59 06:59 14:59 Intake Total 1000 Balance 1000 Lab Results Last 24 Hours: Laboratory Results - last 24 hr 09/04/17 09/05/17 09/05/17 Range/Units 09:11 07:30 07:30 WBC 3.8 L (5.0-10.0) 10^3/uL RBC 3.76 L (4.50-6.00) 10^6/uL Hgb 11.8 L (14.0-18.0) g/dL Hct 36.2 L (40.0-54.0) % MCV 96.3 H (82.0-94.0) fL MCH 31.4 (27.0-32.0) pg MCHC 32.6 L (33.0-38.0) g/dL RDW Coeff of [place] 14.4 (11.0-15.0) % Plt Count 143 L (150-400) 10^3/uL Neut % (Auto) 67.4 (35-85) % Lymph % (Auto) 19.1 (10-55) % [place] % (Auto) 10.4 (0-16) % Eos % (Auto) 2.6 (0-5) % Baso % (Auto) 0.5 (0-3) % Neut # (Auto) 2.58 (1.80-7.00) 10^3/uL Lymph # (Auto) 0.73 L (1.00-4.80) 10^3/uL [place] # (Auto) 0.40 (0.00-0.80) 10^3/uL Eos # (Auto) 0.10 (0.00-0.45) 10^3/uL Baso # (Auto) 0.02 10^3/uL Sodium 141 (136-145) mEq/L Potassium 4.4 (3.5-5.0) mEq/L Chloride 105 (98-106) mEq/L Carbon Dioxide 31 (21-32) mmol/L BUN 19 H (7-18) mg/dL Creatinine 0.8 (0.7-1.3) mg/dL Est Cr Clr Drug Dosing 51.54 mL/min Estimated GFR (MDRD) > 60 (>=60) mL/min Glucose 86 (75-99) mg/dL Calcium 8.8 (8.4-10.1) mg/dL Urine Color Yellow (YELLOW) Urine Appearance Clear (CLEAR) Urine pH 8.5 H (4.5-8.0) Ur Specific [place] 1.020 (1.003-1.020) Urine Protein Negative (NEGATIVE) mg/dL Urine Glucose (UA) Negative (NEGATIVE) mg/dL Urine Ketones Negative (NEGATIVE) mg/dL Urine Occult Blood Negative (NEGATIVE) Urine Nitrite Negative (NEGATIVE) Urine Bilirubin Negative (NEGATIVE) Urine Urobilinogen 1.0 (0.2-1.0) EU/dL Ur Leukocyte Esterase Negative (NEGATIVE) Urine RBC Not seen (0-5) /HPF Urine WBC Not seen (0-5) /HPF Ur Squamous Epith Cells Occasional H (NOT SEEN) /HPF Med Orders - Current: Current Medications Doxazosin Mesylate (Cardura) 4 mg PO DAILY REPLACED BY [facility] Last Admin: 09/05/17 07:31 Dose: 4 mg Enoxaparin Sodium (Lovenox) 40 mg SUBCUT Q24H REPLACED BY [facility] Last Admin: 09/04/17 18:20 Dose: 40 mg Lactated Ringer's (Ringers, Lactated) 1,000 mls @ 50 mls/hr IV ASDIRECTED REPLACED BY [facility] Last Admin: 09/05/17 02:26 Dose: 50 mls/hr Levothyroxine Sodium (Synthroid) 100 mcg PO ACBREAKFAST REPLACED BY [facility] Last Admin: 09/05/17 06:12 Dose: 100 mcg Magnesium Hydroxide (Milk Of Magnesia) 30 ml PO Q12H PRN PRN Reason: Constipation Last Admin: 09/01/17 17:59 Dose: 30 ml Ondansetron HCl (Zofran) 4 mg IVPUSH Q6H PRN PRN Reason: Nausea Last Admin: 09/02/17 17:11 Dose: 4 mg Pantoprazole Sodium (Protonix) 40 mg PO ACBRK REPLACED BY [facility] Last Admin: 09/05/17 06:12 Dose: 40 mg Potassium Chloride (Klor-Con 10) 20 meq PO BIDMEALS REPLACED BY [facility] Last Admin: 09/05/17 07:32 Dose: 20 meq Sodium Chloride (Saline Flush) 10 ml FLUSH ASDIRECTED PRN PRN Reason: Keep Vein Open Discontinued Medications Doxazosin Mesylate (Cardura) 4 mg PO DAILY REPLACED BY [facility] Last Admin: 09/02/17 14:04 Dose: Not Given Levothyroxine Sodium (Synthroid) 100 mcg PO DAILY REPLACED BY [facility] Last Admin: 09/02/17 14:04 Dose: Not Given Doxazosin 4 Mg Tab (Own Med) 4 each PO DAILY REPLACED BY [facility] Ptom Omeprazole (20mg) 1 each PO ACBRK REPLACED BY [facility] Last Admin: 09/03/17 06:33 Dose: 1 each Ptom Doxazosin 4 (Mg Tab) 1 each PO DAILY REPLACED BY [facility] Last Admin: 09/03/17 08:15 Dose: 1 each Pantoprazole Sodium (Protonix) 40 mg PO ACBRK REPLACED BY [facility] Last Admin: 09/02/17 06:17 Dose: Not Given - Exam General: Alert, Oriented, Cooperative, No Acute Distress Lungs: Clear to Auscultation, Normal Respiratory Effort Cardiovascular: Regular Rate, Regular Rhythm, No Murmurs GI/Abdominal Exam: Normal Bowel Sounds, Soft, Non-Tender, No Organomegaly, No Distention, No Abnormal Bruit, No Mass, Pelvis Stable Back Exam: Normal Inspection, Full Range of Motion Extremities: Normal Inspection, Normal Range of Motion, Non-Tender, No Pedal Edema, Normal Capillary Refill Peripheral Pulses: 2+: Radial (L), Radial (R), Posterior Tibial (L), Posterior Tibial (R), Dorsalis Pedis (L), Dorsalis Pedis (R) Skin: Warm, Dry, Intact Neurological: No New Focal Deficit Psy/Mental Status: Alert, Normal Affect, Normal Mood - Problem List Review Problem List Initiated/Reviewed/Updated: Yes - My Orders Last 24 Hours: My Active Orders 09/04/17 09:11 URINALYSIS W/MICROSCOPIC [UA W/MICROSCOPIC] [URIN] Routine - Assessment Assessment:: Dehydration Weakness 09/04/17 This patient was a rebound admit for generalized weakness and hypotension with bradycardia. The patient reports this morning that he is overall feeling well, but remains generally weak. He reports rarely, at times he will have lightheadedness even with just laying in bed. He reports that does not have lightheadedness now. Patient reports he has chronic feeding difficulties and has discussed a possible feeding tube with PCP. He has had large amounts of weight loss due to this chronic issue. Today, I have ordered labs on the patient. I will review once they come back. I have reviewed previous EKG. Patient HR now is 49 Sinus. I will have the patient eat his breakfast this morning then have the nurse walk the patient. Will have nurse obtain HR to ensure increases with activity and assess patient symptoms to check for pacemaker need. If everything is normal, will keep patient until Wednesday. As, the patient lives at home alone without anyone. He has been generally weak and has struggled at home with ADLs. This patient may require long term placement with extended PT/OT. Stable now. 09/05/2017 This patient was a rebound admit for generalized weakness and hypotension with bradycardia. The patient reports this morning he is feeling good. The nurse reports that they walked him yesterday and today. They report that his HR went to 90 with activity. The patient ambulated with assistance, but was unsteady and had to be guided. The patient would not have been able to ambulate without assistance. The patient labs and urine are unremarkable. The patient needs continued PT/OT. I would recommend the patient for assisted living or long term care. He is not safe enough to go home. He lives at home alone. If discharged home, we would more thank likely fall and result in injury. 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 - Plan Plan:: Patient remains hypotensive and weak. He has been ambulating to the bathroom with assistance from nursing. Is unsteady on his feet. Continue IVF. Continue working with PT for strengthening. Encourage ambulation. Continue monitoring BP. Patient has difficulty swallowing and would like to discuss feeding tube. Will admit to acute for continued IVF.
[2017-09-05] MEDS: Enoxaparin 40 MG/0.4 ML Syringe SUBCUT SCH (16:56)
[2017-09-06] MEDS: Doxazosin 2 MG Tab PO SCH (07:45)
[2017-09-06] MEDS: Pantoprazole 40 MG Tab.CR PO SCH (07:45)
[2017-09-06] MEDS: Potassium Chloride 10 MEQ Tab.ER PO SCH (07:45)
[2017-09-06] MEDS: Levothyroxine 100 MCG Tab PO SCH (07:45)
--- NOTE | 2017-09-06 15:39 | PCM.DCSUM1 ---
Discharge Summary - Hospital Course HPI Initial Comments: Patient will be discharged home with home health care services. REferral to [employer]. He will have a follow up appointment with Dr. Bauman on September 14. This is a previously scheduled annual wellness exam. They will discuss the need for a feeding tube at that visit. - Discharge Data Discharge Date: 09/06/17 Discharge Disposition: Home, W Home Health Agency 06 Condition: Good - Discharge Diagnosis/Problem(s) (1) Dehydration SNOMED Code(s): 07025497 ICD Code: E86.0 - DEHYDRATION Status: Acute Priority: High Current Visit: No (2) Weakness SNOMED Code(s): 17391472 ICD Code: R53.1 - WEAKNESS Status: Acute Priority: High Current Visit: No (3) Esophageal dysphagia SNOMED Code(s): 29930643 ICD Code: R13.10 - DYSPHAGIA, UNSPECIFIED Status: Acute Current Visit: Yes (4) Weight loss, unintentional SNOMED Code(s): 619875158 ICD Code: R63.4 - ABNORMAL WEIGHT LOSS Status: Acute Current Visit: Yes - Patient Summary/Data Consults: Consultations 09/01/17 16:30 OT Evaluation and Treatment [CONS] Routine PT Evaluation and Treatment [CONS] Routine - Patient Instructions Diet: Usual Diet as Tolerated Diet, Other: Continue Boost supplements Activity: As Tolerated Notify Provider of: Fever, Increased Pain, Swelling and Redness, Drainage, Nausea and/or Vomiting - Discharge Plan Home Medications: Home Meds Doxazosin Mesylate [Cardura] 4 mg PO DAILY 08/11/17 [History] Levothyroxine Sodium [Synthroid] 100 mcg PO DAILY 08/11/17 [History] Omeprazole 20 mg PO DAILY 08/11/17 [History] Oxybutynin Chloride [Oxybutynin Chloride ER] 5 mg PO DAILY 08/11/17 [History] Potassium Chloride [Klor-Con 10] 10 mg PO DAILY 08/11/17 [History] azaTHIOprine [Imuran] 50 mg PO DAILY 08/11/17 [History] Patient Handouts: Weakness, [id number], Dysphagia Referrals: Husam Bauman MD [ED Physician] - - General Info Date of Service: 09/06/17 Admission Dx/Problem (Free Text: Dehydration Generalized Weakness Functional Status: Reports: Pain Controlled, Tolerating Diet, Ambulating, Urinating. Denies: New Symptoms - Review of Systems General: Reports: Weakness. Denies: Fever, Fatigue, Chills Pulmonary: Reports: No Symptoms. Denies: Shortness of Breath, Cough, Sputum Cardiovascular: Reports: No Symptoms. Denies: Chest Pain, Palpitations, Dyspnea on Exertion, Edema, Lightheadedness Gastrointestinal: Reports: Decreased Appetite, Difficulty Swallowing. Denies: Abdominal Pain, Constipation, Diarrhea, Hematochezia, Melena, Nausea, Vomiting Genitourinary: Reports: Incontinence. Denies: Dysuria, Urgency Musculoskeletal: Reports: No Symptoms Skin: Reports: No Symptoms Neurological: Reports: Weakness. Denies: Confusion, Dizziness, Headache, Numbness, Tingling, Difficulty Walking, Gait Disturbance Psychiatric: Reports: No Symptoms - Patient Data Vitals - Most Recent: Last Vital Signs Temp 97.0 F 09/06/17 11:50 Pulse 62 09/06/17 11:50 Resp 16 09/06/17 11:50 BP 95/47 L 09/06/17 11:50 Pulse Ox 98 09/06/17 11:50 Weight - Most Recent: 123 lb 8 oz Med Orders - Current: Current Medications Doxazosin Mesylate (Cardura) 4 mg PO DAILY [facility] Last Admin: 09/06/17 07:45 Dose: 4 mg Enoxaparin Sodium (Lovenox) 40 mg SUBCUT Q24H [facility] Last Admin: 09/05/17 16:56 Dose: 40 mg Lactated Ringer's (Ringers, Lactated) 1,000 mls @ 50 mls/hr IV ASDIRECTED [facility] Last Admin: 09/05/17 19:30 Dose: 50 mls/hr Levothyroxine Sodium (Synthroid) 100 mcg PO ACBREAKFAST [facility] Last Admin: 09/06/17 07:45 Dose: 100 mcg Magnesium Hydroxide (Milk Of Magnesia) 30 ml PO Q12H PRN PRN Reason: Constipation Last Admin: 09/01/17 17:59 Dose: 30 ml Ondansetron HCl (Zofran) 4 mg IVPUSH Q6H PRN PRN Reason: Nausea Last Admin: 09/02/17 17:11 Dose: 4 mg Pantoprazole Sodium (Protonix) 40 mg PO ACBRK [facility] Last Admin: 09/06/17 07:45 Dose: 40 mg Potassium Chloride (Klor-Con 10) 20 meq PO BIDMEALS [facility] Last Admin: 09/06/17 07:45 Dose: 20 meq Sodium Chloride (Saline Flush) 10 ml FLUSH ASDIRECTED PRN PRN Reason: Keep Vein Open Discontinued Medications Doxazosin Mesylate (Cardura) 4 mg PO DAILY [facility] Last Admin: 09/02/17 14:04 Dose: Not Given Levothyroxine Sodium (Synthroid) 100 mcg PO DAILY [facility] Last Admin: 09/02/17 14:04 Dose: Not Given Doxazosin 4 Mg Tab (Own Med) 4 each PO DAILY [facility] Ptom Omeprazole (20mg) 1 each PO ACBRK [facility] Last Admin: 09/03/17 06:33 Dose: 1 each Ptom Doxazosin 4 (Mg Tab) 1 each PO DAILY [facility] Last Admin: 09/03/17 08:15 Dose: 1 each Pantoprazole Sodium (Protonix) 40 mg PO ACBRK [facility] Last Admin: 09/02/17 06:17 Dose: Not Given - Exam General: Reports: Alert, Oriented, No Acute Distress Neck: Reports: Supple Lungs: Reports: Clear to Auscultation, Normal Respiratory Effort Cardiovascular: Reports: Regular Rhythm, Bradycardia GI/Abdominal Exam: Normal Bowel Sounds, Soft, Non-Tender, No Organomegaly, No Distention, No Abnormal Bruit, No Mass, Pelvis Stable Back Exam: Reports: Normal Inspection, Full Range of Motion Extremities: Normal Inspection, Normal Range of Motion, Non-Tender, No Pedal Edema, Normal Capillary Refill Skin: Reports: Warm, Dry, Intact Neurological: Reports: No New Focal Deficit Psy/Mental Status: Reports: Alert, Normal Affect, Normal Mood
== END 2017-09-06 16:09 | disposition home health service (06) | DRG 641 ==
LOC: CC.FCMC 14:26 → CC.MS 14:26 → UNDOADMIN 15:56 → CC.MS 15:56 → INTOOBSV 16:30 → CC.MS 16:30 → OBSVTOIN 09-03 13:33
PROVIDERS: ADMIT Family Medicine; ATTEND General Practice
DX: E86.0 Dehydration (principal); R64 Cachexia; Z68.1 Body mass index [BMI] 19.9 or less, adult; I95.9 Hypotension, unspecified; R00.1 Bradycardia, unspecified; R53.1 Weakness; K21.9 Gastro-esophageal reflux disease without esophagitis; I10 Essential (primary) hypertension; E03.9 Hypothyroidism, unspecified; R53.83 Other fatigue; R42 Dizziness and giddiness; R06.00 Dyspnea, unspecified; R13.19 Other dysphagia; N42.9 Disorder of prostate, unspecified; R32 Unspecified urinary incontinence; Z79.899 Other long term (current) drug therapy; Z96.659 Presence of unspecified artificial knee joint
CPT/HCPCS: 36415; 71046; 80048; 80053; 81001; 83735; 84439; 84443; 84484; 85025; 85651; 93005; 97110-GP; 97161-GP; 97530-GP; A9270-GY; J1650; J2405; J7120